=== PATIENT | female | born 1935 | race African-American/Black ===

== ENCOUNTER 2018-01-15 22:17 | Emergency (ER) | payer BC, MEDICAID, MEDICARE, OTHER ==
[~2018-01-15] VITALS: Ht 154.9 cm; Wt 63.5 kg
[2018-01-15 22:35] VITALS: BP 132/45
[2018-01-15 23:37] LABS: BASOPHILS % (AUTO) 0.6 % (0.0-2.0); EOSINOPHILS % (AUTO) 3.2 % (0.0-3.0); HEMATOCRIT 32.3 % (37.0-47.0); HEMOGLOBIN 10.6 G/DL (12.0-16.0); MEAN CORPUSCULAR VOLUME 90 FL (80-99); MONOCYTES % (AUTO) 7.1 % (1.0-10.0); NEUTROPHILS % (AUTO) 72.2 % (45.0-75.0); PLATELET COUNT 159 K/UL (150-450); RED BLOOD COUNT 3.57 M/UL (4.20-5.40); RED CELL DISTRIBUTION WIDTH 13.2 % (11.6-14.8); WHITE BLOOD COUNT 4.9 K/UL (4.8-10.8)
[2018-01-15 23:43] LABS: APPEARANCE,URINE CLEAR; BILIRUBIN, URINE NEGATIVE (NEGATIVE); COLOR,URINE PALE YELLOW; GLUCOSE, URINE (UA) NEGATIVE (NEGATIVE); KETONES,URINE NEGATIVE (NEGATIVE); LEUKOCYTE ESTERASE ,URINE 2+ (NEGATIVE); NITRITE,URINE NEGATIVE (NEGATIVE); PH,URINE 5 (4.5-8.0); PROTEIN,URINE NEGATIVE (NEGATIVE); UROBILINOGEN,URINE NORMAL MG/DL (0.0-1.0)
[2018-01-15 23:56] LABS: ANION GAP 6 mmol/L (5-15); BLOOD UREA NITROGEN 11 mg/dL (7-18); CALCIUM 8.8 MG/DL (8.5-10.1); CARBON DIOXIDE 26 MMOL/L (21-32); CHLORIDE 107 MMOL/L (98-107); CREATININE 0.9 MG/DL (0.55-1.30); POTASSIUM 3.7 MMOL/L (3.5-5.1); SODIUM 139 MMOL/L (136-145)
--- NOTE | 2018-01-16 00:02 | Emergency Room Report ---
History of Present Illness General Chief Complaint: Dizziness Source: Patient, EMS Present Illness HPI This is an 82-year-old female with history hypertension. She said she had a history of minor stroke a few years ago. She presents with chief complaint of dizziness. She was eating dinner when she she got very dizzy and felt following in room spinning. Similar symptom in the past but she said she had a stroke. She require carotid endartertomy. No focal deficit. No slurred speech. She was able to walk out from her correction living facility and walked to the ambulance. No focal deficit. No fever or chills. No urinary complaint. Allergies: Coded Allergies: PENICILLINS (Unverified Allergy, Unknown, 01/15/18) Patient History Past Medical History: see triage record, old chart reviewed, HTN Past Surgical History: other Pertinent Family History: none Social History: Denies: smoking Last Menstrual Period: NA Now: No Immunizations: other Reviewed Nursing Documentation: PMH: Agreed, PSxH: Agreed Nursing Documentation-PMH Hx Hypertension: Yes Hx COPD: Yes Review of Systems Eye: Denies: eye pain, blurred vision ENT: Denies: ear pain, nose congestion, throat swelling Respiratory: Denies: cough, shortness of breath Cardiovascular: Denies: chest pain, palpitations Gastrointestinal: Denies: abdominal pain, diarrhea, nausea, vomiting Musculoskeletal: Denies: back pain, joint pain Skin: Denies: rash Neurological: Reports: dizziness, Denies: headache, numbness Endocrine: Denies: increased thirst, increased urine Hematologic/Lymphatic: Denies: easy bruising All Other Systems: negative except mentioned in HPI Physical Exam Vital Signs Date Time Temp Pulse Resp B/P (MAP) Pulse Ox O2 Delivery O2 Flow Rate FiO2 01/15/18 22:13 97.7 66 18 102/52 99 Room Air 97.7 vitals normal Sp02 EP Interpretation: reviewed, normal General Appearance: well appearing, no apparent distress, alert Head: normocephalic, atraumatic Eyes: bilateral eye PERRL, bilateral eye EOMI ENT: hearing grossly normal, normal pharynx Neck: full range of motion, supple, no meningismus Respiratory: chest non-tender, lungs clear, normal breath sounds Cardiovascular #1: regular rate, rhythm, no murmur Gastrointestinal: normal bowel sounds, non tender, no mass, no organomegaly, no bruit, non-distended Musculoskeletal: back normal, gait/station normal, normal range of motion Neurologic: alert, oriented x3 Psychiatric: mood/affect normal Skin: warm/dry Medical Decision Making Diagnostic Impression: Primary Impression: Dizziness Additional Impressions: UTI (urinary tract infection) Qualified Codes: N30.00 - Acute cystitis without hematuria Prescription refill ER Course Patient with dizziness. Could be vertigo. No evidence of ACS, TIA, CVA, bleed to name a few. [place] better now. She does have a urinary tract infection which may contribute. She says she is out of her [place] for her arthritis and has for refill. Lab Results Impression labs unremarkable EKG Diagnostic Results Rate: normal Rhythm: NSR ST Segments: no acute changes Rhythm Strip Diag. Results Rhythm Strip Time: 00:00 EP Interpretation: yes Rate: 55 Rhythm: NSR, no PVC's, no ectopy Chest X-Ray Diagnostic Results Chest X-Ray Diagnostic Results : Chest X-Ray Ordered: Yes # of Views/Limited/Complete: 1 View Indication: Shortness of Breath EP Interpretation: Yes Interpretation: no consolidation, no effusion, no pneumothorax, no acute cardiopulmonary disease Impression: No acute disease Electronically Signed by: Anderson De La Torre MD Last Vital Signs Date Time Temp Pulse Resp B/P (MAP) Pulse Ox O2 Delivery O2 Flow Rate FiO2 01/15/18 22:13 97.7 66 18 102/52 99 Room Air 97.7 Status: improved Disposition: XFER SNF Condition: Stable Scripts Hydrocodone/Acetaminophen 7.5-325* (HYDROCODON-ACETAMINOPH 7.5-325*) 1 Each Tablet 1 TAB ORAL Q6H Y for For Pain, #15 TAB 0 Refills Prov: ANDERSON DE LA TORRE M.D. 01/16/18 Nitrofurantoin Monohyd/M-Cryst* (MACROBID 100 MG*) 100 Mg Capsule 100 MG ORAL EVERY 12 HOURS, #14 CAP Prov: ANDERSON DE LA TORRE M.D. 01/16/18 Meclizine Hcl* (MECLIZINE*) 25 Mg Tablet 25 MG ORAL THREE TIMES A DAY, #30 TAB Prov: ANDERSON DE LA TORRE M.D. 01/16/18 Patient Instructions: Dizziness Additional Instructions: Follow-up with your doctor in 7 days. Return if worse. ANDERSON DE LA TORRE M.D. Jan 16, 2018 00:02
[2018-01-16 00:05] VITALS: BP 142/58
[2018-01-16] MEDS ORDERED: cefTRIAXone 1 GM in NS 55 ML IVPB ONE (00:15)
[2018-01-16] MEDS ORDERED: Norco 5mg/325mg tab ORAL ONE (01:45)
[2018-01-16] MEDS ORDERED: MECLIZINE HCL25 MG ORAL (02:11)
[2018-01-16] MEDS ORDERED: NITROFURANTOIN100 M2 ORAL (02:11)
[2018-01-16] MEDS ORDERED: HYDROCODON-ACE1 EA16 ORAL (02:11)
[2018-01-16 02:40] VITALS: BP 152/52
[2018-01-16 02:50] VITALS: BP 152/52
--- NOTE | 2018-01-16 10:08 | Diagnostic Imaging Report ---
Indication: Dizziness Technique: spiral acquisitions obtained through the brain. Angled axial and coronal 5 x 5 mm slices were reconstructed. No IV contrast utilized. Radiation dose was minimized using automated exposure control Total dose length product 1316.27 mGycm. CTDIvol(s) 70.38 mGy Comparison: none FINDINGS: No acute hemorrhage or edema. No mass effect or midline shift. There is age-related enlargement of the ventricles and extra axial CSF spaces. There is periventricular deep white matter ischemic change. Normal spicer-white differentiation. Visualized orbits are unremarkable. Visualized sinuses are unremarkable. Intact calvarium. There is a small cutaneous lesion in the left occipital region. There is evidence of prior bilateral cataract surgery. The calvarium is intact. The sinuses are clear. The mastoids are clear IMPRESSION: Chronic and age-related changes. Negative for acute intracranial bleed or mass effect This agrees with the preliminary interpretation provided overnight by [facility]. The CT scanner at [facility] is accredited by the [employer] and the scans are performed using protocols designed to limit radiation exposure to as low as reasonably achievable to attain images of sufficient resolution adequate for diagnostic evaluation
--- NOTE | 2018-01-16 11:18 | Diagnostic Imaging Report ---
Indication: Shortness of breath Technique: One view of the chest Comparison: none Findings: Lungs are hyperinflated. There is peripheral peripheral opacity of the right lateral lung base. Uncertain as to whether this is pleural or parenchymal. The remainder the lungs and pleural spaces are clear. The heart size is upper limits of normal. The aorta is somewhat ectatic Impression: Hyperinflation, likely COPD Peripheral right lateral basilar opacity although possibly artifactual, pleural and/or parenchymal mass or consolidation is possible. Recommend follow-up radiographs, CT is lesion persists Findings discussed by phone with Dr. Sin in the emergency room at the time of interpretation
--- NOTE | 2018-01-19 21:29 | Cardiology Report ---
APPROVED REPORT EKG Measurement Heart [id number] Sinus bradycardia Septal infarct, age undetermined Abnormal ECG
== END 2018-01-16 02:50 ==
LOC: EDBD 22:17 → EMR 22:48
DX: R42 Dizziness and giddiness (principal); N30.00 Acute cystitis without hematuria; Z76.0 Encounter for issue of repeat prescription; I10 Essential (primary) hypertension; J44.9 Chronic obstructive pulmonary disease, unspecified; Z88.0 Allergy status to penicillin; Z86.73 Personal history of transient ischemic attack (TIA), and cerebral infarction without residual deficits
CPT/HCPCS: 36415; 70450; 71045; 80048; 81001; 84484; 85025; 87086; 93005; 96374; 96375; 99284; J0696; J2405